=== PATIENT | male | born 1975 | race Caucasian/White ===

== ENCOUNTER 2023-09-26 19:43 | Emergency (ER) | payer MEDICAID ==
[~2023-09-26] VITALS: Ht 182.9 cm; Wt 86.2 kg
[2023-09-26 20:07] VITALS: TEMP 98.7
[2023-09-26] MEDS ORDERED: KETOROLAC TROMETHAMINE INJ 30 MG/ML VIAL ONE (20:14)
[2023-09-26] MEDS ORDERED: ONDANSETRON HCL/PF 4 MG/2 ML VIAL ONE (20:14)
[2023-09-26] MEDS ORDERED: HYDROMORPHONE 1 MG/1 ML DISP.SYRIN ONE (20:15)
[2023-09-26] MEDS: HYDROMORPHONE 1 MG/1 ML DISP.SYRIN IV ONE (20:29)
[2023-09-26] MEDS: ONDANSETRON HCL/PF - ER 4 MG/2 ML VIAL IV ONE (20:29)
[2023-09-26] MEDS: KETOROLAC TROMETHAMINE INJ 30 MG/ML VIAL IV ONE (20:29)
[2023-09-26 20:33] LABS: BASOPHILS % (AUTO) 0.4 % (0.0-2.0); EOSINOPHILS # (AUTO) 0.3 K/uL (0.0-0.7); EOSINOPHILS % (AUTO) 2.9 % (0.0-6.0); HEMATOCRIT 44 % (39-51); HEMOGLOBIN 15.1 g/dL (13.5-17.5); LYMPHOCYTES # (AUTO) 2.1 K/uL (0.8-4.8); LYMPHOCYTES % (AUTO) 21.2 % (20.0-44.0); MEAN CORPUSCULAR HEMOGLOBIN 31 PG (26.0-33.0); MEAN CORPUSCULAR HGB CONC 34 g/dl (31.0-36.0); MEAN CORPUSCULAR VOLUME 91 fL (80-96); MONOCYTES # (AUTO) 0.6 K/uL (0.1-1.30); MONOCYTES % (AUTO) 6.1 % (2.0-12.0); NEUTROPHILS # (AUTO) 6.9 K/uL (1.8-8.9); NEUTROPHILS % (AUTO) 69.4 % (43.0-81.0); PLATELET COUNT (AUTO) 233 K/uL (150-450); RED BLOOD CELL COUNT(AUTO) 4.89 MIL/uL (4.5-6.0); RED CELL DISTRIBUTION WIDTH 13.2 % (11.5-15.0); WHITE BLOOD COUNT (AUTO) 9.9 K/uL (4.3-11.0)
[2023-09-26] MEDS: IV NS 0.9% 1,000 ML IV ONE (20:36)
[2023-09-26 20:49] LABS: LACTIC ACID 1.4 mmol/L (0.4-2.0)
[2023-09-26 21:09] LABS: ALBUMIN 4.3 g/dL (3.4-5.0); BILIRUBIN,TOTAL 0.3 mg/dL (0.2-1.0); CALCIUM, SERUM 9.8 mg/dL (8.5-10.1); CREATININE 1.4 mg/dL (0.6-1.3); POTASSIUM 3.6 mmol/L (3.5-5.1); TOTAL PROTEIN, SERUM 7.5 g/dL (6.4-8.2)
[2023-09-26] MEDS ORDERED: TAMS-12 PO (22:30)
[2023-09-26] MEDS ORDERED: CEPH500C2 PO (22:30)
[2023-09-26 22:45] VITALS: BP 139/79; O2SAT 98
[2023-09-27] MEDS ORDERED: HYDR-4303 PO (18:12)
[2023-09-27] MEDS ORDERED: HYDR-4277 PO (19:29)
== END 2023-09-26 22:46 | disposition home or self-care (01) ==
LOC: ER 19:47
DX: N20.0 Calculus of kidney (principal); R11.2 Nausea with vomiting, unspecified
CPT/HCPCS: 99285; 74176; 96374; 96375; 96361; 85025; 83605; 36415; 80053; J1885; J2405; J7030; J1170

== ENCOUNTER 2023-09-27 10:12 | Emergency (ER) | payer MEDICAID ==
[~2023-09-27] VITALS: Ht 182.9 cm; Wt 85.7 kg
[~2023-09-27 10:12] MED LIST: CEPH500C2 PO; TAMS-12 PO
[2023-09-27] MEDS ORDERED: ONDANSETRON HCL/PF 4 MG/2 ML VIAL ONE (10:53)
[2023-09-27] MEDS ORDERED: KETOROLAC TROMETHAMINE INJ 30 MG/ML VIAL ONE (10:54)
[2023-09-27] MEDS ORDERED: MORPHINE SULFATE INJ 4 MG/ML DISP.SYRIN ONE (10:54)
[2023-09-27] MEDS: MORPHINE SULFATE INJ 2 MG/ML DISP.SYRIN IV ONE (10:57)
[2023-09-27] MEDS: KETOROLAC TROMETHAMINE INJ 30 MG/ML VIAL IV ONE (10:59)
[2023-09-27] MEDS: IV NS 0.9% 500 ML BAG IV ONE (10:59)
[2023-09-27] MEDS: ONDANSETRON HCL/PF - ER 4 MG/2 ML VIAL IV ONE (10:59)
[2023-09-27] MEDS ORDERED: KETOROLAC TROMETHAMINE 15 MG/ML VIAL ONE (11:19)
[2023-09-27] MEDS ORDERED: HYDROMORPHONE 1 MG/1 ML DISP.SYRIN ONE ×2 (11:19→13:31)
[2023-09-27] MEDS: KETOROLAC TROMETHAMINE 15 MG/ML VIAL IV ONE (11:20)
[2023-09-27] MEDS: HYDROMORPHONE 1 MG/1 ML DISP.SYRIN IV ONE ×2 (11:25→13:32)
[2023-09-27] MEDS ORDERED: HYDR-4303 PO (18:12)
[2023-09-27 18:39] VITALS: BP 131/84; TEMP 98.2; O2SAT 99
[2023-09-27] MEDS ORDERED: HYDR-4277 PO (19:29)
== END 2023-09-27 18:25 | disposition home or self-care (01) ==
LOC: ER 10:15
DX: N20.0 Calculus of kidney (principal); Z60.2 Problems related to living alone
CPT/HCPCS: 99285; 96374; 96375; 96361; 96376; J2270; J1885 ×2; J2405 ×2; J7030; J1170 ×2